=== PATIENT | female | born 1970 | race Caucasian/White ===

== ENCOUNTER 2022-10-23 08:00 | Outpatient (CLI) | payer OTHER ==
--- NOTE | 2022-10-23 12:44 | XRAY Report ---
PROCEDURE: Knee 4 View LT INDICATIONS: LEFT KNEE PAIN TECHNIQUE: 4 views of the left knee and one view of the right knee acquired. COMPARISON: None. FINDINGS: Bones: No acute fractures or dislocations. No suspicious bony lesions. There is moderate narrowin g of the patellofemoral compartment joint space and mild lateral femorotibial joint spaces on the lef t with tricompartmental marginal osteophyte formation. Soft tissues: Small left knee joint effusion. No suspicious soft tissue calcifications. IMPRESSION: Mild to moderate tricompartmental osteoarthrosis. Small left effusion. Reviewed by: Raheem Rodriguez MD on 10/23/2022 12:43 PM PDT Approved by: Raheem Rodriguez MD on 10/23/2022 12:43 PM PDT Station ID: [id number]
== END 2022-10-23 23:59 | disposition home or self-care (01) ==
LOC: DI.WOS 08:00
PROVIDERS: ATTEND Physician Assistant Surgical
DX: M17.12 Unilateral primary osteoarthritis, left knee (principal); M25.462 Effusion, left knee